=== PATIENT | male | born 1990 | race Hispanic/Latino ===

== ENCOUNTER 2019-08-17 19:54 | Emergency (ER) | payer BC, MEDICARE ==
[2019-08-17 20:09] LABS: APPEARANCE,URINE Clear (CLEAR); BILIRUBIN,URINE Negative (NEGATIVE); COLOR,URINE Yellow (YELLOW); GLUCOSE, URINE (UA) Negative (NEGATIVE); KETONES,URINE Trace mg/dL (NEGATIVE); LEUKOCYTE ESTERASE ,URINE Negative (NEGATIVE); NITRATE,URINE Negative (NEGATIVE); OCCULT BLOOD,URINE Negative (NEGATIVE); PH,URINE 6.5 (5.0-8.0); PROTEIN,URINE Negative (NEGATIVE)
[2019-08-17 20:13] LABS: BASOPHILS % (AUTO) 0.1 % (0.0-5.0); EOSINOPHILS % (AUTO) 0.5 % (0.0-8.0); HEMATOCRIT 43.9 % (42-54); LYMPHOCYTES % (AUTO) 15.5 % (21.0-51.0); MEAN CORPUSCULAR HEMOGLOBIN 30.5 pg (27.0-33.0); MEAN CORPUSCULAR HGB CONC 34.6 g/dL (32.0-36.0); MONOCYTES % (AUTO) 8.6 % (3.0-13.0); NEUTROPHILS % (AUTO) 75.1 % (40.0-77.0); PLATELET COUNT (AUTO) 251 K/uL (130-400); RED BLOOD CELL COUNT(AUTO) 4.99 MIL/uL (4.50-6.20); RED CELL DISTRIBUTION WIDTH 12.7 % (11.0-15.5); WHITE BLOOD COUNT (AUTO) 9.3 K/uL (4.8-10.8)
[2019-08-17 20:18] LABS: AMPHET/METH SCREEN,URINE NEGATIVE (NEGATIVE); BARBITURATE SCREEN, URINE NEGATIVE (NEGATIVE); BENZODIAZEPINES SCREEN,URINE NEGATIVE (NEGATIVE); CANNABINOID SCREEN,URINE NEGATIVE (NEGATIVE); COCAINE SCREEN,URINE NEGATIVE (NEGATIVE); OPIATE SCREEN,URINE NEGATIVE (NEGATIVE); PHENCYCLIDINE SCREEN,URINE NEGATIVE (NEGATIVE)
[2019-08-17 20:26] LABS: INR 0.98 (0.85-1.15); PARTIAL THROMBOPLASTIN TIME 29.6 SEC (26.3-35.5); PROTHROMBIN TIME 10.6 SEC (9.6-11.6)
[2019-08-17 20:40] LABS: CREATININE 1.4 mg/dL (0.5-1.5); POTASSIUM 3.5 mmol/L (3.5-5.1)
[2019-08-17 20:44] LABS: ALBUMIN 3.8 g/dL (3.5-5.0); BILIRUBIN,TOTAL 0.4 mg/dL (0.2-1.0)
[2019-08-17] MEDS ORDERED: ACETAMINOPHEN EXTRA STRENGTH 500 MG TABLET ONE (21:23)
[2019-08-17] MEDS ORDERED: LEVOFLOXACIN 500 MG/D5W 100 ML 100 ML ONE (22:41)
[2019-08-17] MEDS ORDERED: METRONIDAZOLE 500MG/100ML BAG 100 ML ONE (22:41)
[2019-08-17] MEDS ORDERED: IOHEXOL-350 75 ML VIAL IV ONE (22:46)
== END 2019-08-18 00:42 | disposition home or self-care (01) ==
LOC: EDH 19:54
DX: R07.89 Other chest pain (principal); K57.32 Diverticulitis of large intestine without perforation or abscess without bleeding; I10 Essential (primary) hypertension; E78.00 Pure hypercholesterolemia, unspecified
CPT/HCPCS: 36415; 71045; 71275; 74176; 80053; 80305; 81003; 82550; 84484; 85025; 85378; 85610; 85730; 93005; 96365; 96366; 96368; 99285; J1956; J3490; J7030; Q9967

== ENCOUNTER 2022-10-17 13:55 | Emergency (ER) | payer BC, OTHER ==
[~2022-10-17] VITALS: Ht 190.5 cm; Wt 134.3 kg
[2022-10-17 14:11] VITALS: BP 162/86; PULSE 77; RESP 17
[2022-10-17] MEDS ORDERED: SILV20CR11 TP (15:12)
== END 2022-10-17 15:27 | disposition home or self-care (01) ==
LOC: EDH 13:55
DX: S60.521A Blister (nonthermal) of right hand, initial encounter (principal); T23.201A Burn of second degree of right hand, unspecified site, initial encounter; T31.0 Burns involving less than 10% of body surface; X58.XXXA Exposure to other specified factors, initial encounter; Y93.89 Activity, other specified; Y92.89 Other specified places as the place of occurrence of the external cause; Y99.8 Other external cause status

== ENCOUNTER 2023-10-11 14:19 | Emergency (ER) | payer OTHER, BC ==
[~2023-10-11] VITALS: Ht 190.5 cm; Wt 136.1 kg
[~2023-10-11 14:19] MED LIST: SILV20CR11 TP
[2023-10-11] MEDS: IBUPROFEN 800 MG TAB PO ONE (15:00)
[2023-10-11] MEDS ORDERED: IBUP-2077 PO (15:22)
[2023-10-11 17:24] VITALS: BP 159/82; PULSE 79; RESP 18; O2SAT 99
== END 2023-10-11 17:30 | disposition home or self-care (01) ==
LOC: EDH 14:19
DX: S46.912A Strain of unspecified muscle, fascia and tendon at shoulder and upper arm level, left arm, initial encounter (principal); X58.XXXA Exposure to other specified factors, initial encounter; Y93.89 Activity, other specified; Y92.89 Other specified places as the place of occurrence of the external cause; Y99.8 Other external cause status
CPT/HCPCS: 73030